=== PATIENT | female | born 1995 | race African-American/Black ===

== ENCOUNTER 2021-12-24 14:14 | Inpatient (IN) ==
[2021-12-24] MEDS ORDERED: LACTATED RINGERS 1,000 ML IV ONE (14:31)
[2021-12-24 14:41] LABS: Basophils % 0.2 % (0.0-0.8); Eosinophils # 0.2 10*3/uL (0.0-0.87); Eosinophils % 1.4 % (0.00-10.9); Hematocrit 31.8 VOL% (35.7-47.0); Hemoglobin 10.6 GM/DL (12.0-16.0); Immature Granulocytes % 0.8 %; Immature Granulocytes Absolute 0.09 #; Lymphocytes # 2.1 10*3/uL (1.4-4.0); Lymphocytes % 17.8 % (21.3-54.2); Mean Corpuscular HGB Conc 33.3 GM/DL (32-36); Monocytes # 1.2 10*3/uL (0.11-0.8); Monocytes % 10.1 % (1.7-12.7); Neutrophils % 69.7 % (38.7-73.9); Platelet Count 133 T/CUMM (130-400); Red Blood Count 3.28 MC/CUMM (3.8-5.5); Red Cell Distribution Width 14.3 % (9.3-17.3); White Blood Count 11.6 T/CUMM (4-12)
[2021-12-24 14:50] LABS: INR 0.9; PT Patient Result 10.5 SECS (10.1-12.1); Partial Thromboplastin Time 26.5 SECS (23.7-32.9)
[2021-12-24 15:15] LABS: Alanine Aminotransferase 22 U/L (13-56); Albumin 2.7 G/DL (3.4-5.0); Alkaline Phosphatase 139 U/L (45-117); Aspartate Amino Transferase 29 U/L (0-37); Bilirubin,Total < 0.39 MG/DL (0.20-1.00); Blood Urea Nitrogen 10 MG/DL (7-18); Calcium 8.2 MG/DL (8.5-10.1); Carbon Dioxide 22 MMOL/L (21-32); Chloride 109 MMOL/L (98-107); Glucose 144 MG/DL (74-106); Osmolality,Calculated 280.4 MOS/KG (273-304); Potassium 3.6 MMOL/L (3.5-5.1); Sodium 140 MMOL/L (136-145); Total Protein 5.8 G/DL (6.4-8.2)
[2021-12-24 16:03] LABS: Bacteria,Urine Occasional /HPF (Few); Bilirubin,Urine Negative (Negative); Blood, Urine Moderate mg/dL (Negative); Glucose,Urine (UA) 50 mg/dL (Negative); Hyaline Casts,Urine 7 /LPF (0-3); Ketones,Urine Negative (Negative); Mucus,Urine Occasional /LPF (Occasional); Nitrite,Urine Negative (Negative); Protein,Urine 100 mg/dL (Negative); RBC,Urine 86 /HPF (0-4); Squamous Epithelial Cell,Urine Occasional /HPF (0-10); Urine Appearance Slightly Hazy (Clear); Urine Color Yellow (Yellow); Urine Specific Gravity 1.028 (1.001-1.035); Urine Urobilinogen < 2.0 eU/dL (<2.0)
[2021-12-24] MEDS ORDERED: METOCLOPRAMIDE 10 MG/2 ML VIAL ONE (16:15)
[2021-12-24] MEDS ORDERED: FAMOTIDINE 20 MG/2 ML VIAL IV ONE (16:15)
[2021-12-24 16:29] LABS: Barbiturates Screen,Urine Negative (Negative); Benzodiazepines Screen,Urine Negative (Negative); Cannabinoid Screen,Urine Negative (Negative); Opiate Screen,Urine Negative (Negative); Phencyclidine Screen,Urine Negative (Negative)
[2021-12-24] MEDS ORDERED: ceFAZolin 2,000 MG/50 ML DUPLEX IV ONE (16:34)
[2021-12-24] MEDS ORDERED: ONDANSETRON 4 MG/2 ML VIAL IV PRN (16:36)
[2021-12-24] MEDS ORDERED: MORPHINE 2 MG/1 ML SYRINGE IV PRN (16:36)
[2021-12-24] MEDS ORDERED: fentaNYL 100 MCG/2 ML VIAL ONE ×2 (16:43→18:50)
[2021-12-24] MEDS ORDERED: SUCCINYLCHOLINE 200 MG/10 ML VIAL ONE (16:43)
[2021-12-24] MEDS ORDERED: propofoL 200 MG/20 ML VIAL IV ONE (16:43)
[2021-12-24] MEDS ORDERED: ROCURONIUM 50 MG/5 ML VIAL IV ONE ×2 (16:43→19:28)
[2021-12-24] MEDS ORDERED: DIPH/TET/ACEL PERT BOOSTER VACCINE 0.5 ML VIAL IM ONE (16:46)
[2021-12-24] MEDS ORDERED: GENTAMICIN 80 MG/2 ML VIAL ONE (16:51)
[2021-12-24] MEDS ORDERED: GENTAMICIN INJ 80 MG/50 ML PREMIX IV SCH (17:00)
[2021-12-24] MEDS ORDERED: PHENYLEPHRINE 1 MG/10 ML SYRINGE IV ONE (17:20)
[2021-12-24] MEDS ORDERED: PHENYLEPHRINE 10 MG/1 ML VIAL IV ONE (17:20)
[2021-12-24] MEDS ORDERED: ePHEDrine 50 MG/ML VIAL ONE (17:32)
[2021-12-24] MEDS ORDERED: ALBUMIN 5% 12.5 GM/250 ML VIAL IV ONE ×2 (17:32→18:41)
[2021-12-24 18:13] LABS: Basophils % 0.2 % (0.0-0.8); Eosinophils % 0.2 % (0.00-10.9); Hematocrit 27.3 VOL% (35.7-47.0); Immature Granulocytes % 0.6 %; Immature Granulocytes Absolute 0.08 #; Lymphocytes # 1.3 10*3/uL (1.4-4.0); Lymphocytes % 9.9 % (21.3-54.2); Mean Corpuscular Volume 98.6 FL (87-102); Mean Platelet Volume 11.9 FL (9.6-12.0); Monocytes # 1.3 10*3/uL (0.11-0.8); Monocytes % 9.8 % (1.7-12.7); Neutrophils % 79.3 % (38.7-73.9); Platelet Count 127 T/CUMM (130-400); Red Blood Count 2.77 MC/CUMM (3.8-5.5); Red Cell Distribution Width 14.3 % (9.3-17.3); White Blood Count 13.1 T/CUMM (4-12)
[2021-12-24 18:27] LABS: ABG Base Excess -5.3 MMOL/L (-2.5-2.5); ABG Oxygen Saturation 95.5 % (95-100); ABG PCO2 40.5 MM HG (35-48); ABG PH 7.313 (7.35-7.45); ABG PO2 85.7 MM HG (80-95); ABG TCO2 19.2 MMOL/L (23-27)
[2021-12-24] MEDS ORDERED: HEPARIN/NACL 0.9% 2 UNITS/ML 1,000 UNIT/500 ML BAG IV ONE (18:27)
[2021-12-24] MEDS ORDERED: ALBUMIN 25% 25 GM/100 ML VIAL IV ONE (18:41)
[2021-12-24] MEDS ORDERED: SODIUM CHLORIDE 0.9% 1,000 ML IV PRN (18:47)
[2021-12-24 19:08] LABS: Calcium 8.7 MG/DL (8.5-10.1); Osmolality,Calculated 279.3 MOS/KG (273-304); Potassium 4.4 MMOL/L (3.5-5.1)
[2021-12-24] MEDS ORDERED: LACTATED RINGERS 2,000 ML IV ONE (19:28)
[2021-12-24] MEDS ORDERED: SODIUM CHLORIDE 0.9% 1,000 ML IV ONE (19:28)
[2021-12-24] MEDS ORDERED: ONDANSETRON 4 MG/2 ML VIAL ONE (19:28)
[2021-12-24] MEDS ORDERED: ALBUTEROL INHALER 18 GM INH ONE (19:28)
[2021-12-24] MEDS ORDERED: SODIUM CHLORIDE 0.9% 250 ML IV ONE (19:37)
[2021-12-24 19:39] LABS: Microcytosis Slight; Platelet Estimate Decreased
[2021-12-24] MEDS ORDERED: NEOMYCIN/POLYMYXIN/BACITRACIN OINT 28.4 GM TUBE TOP ONE (19:39)
[2021-12-24 19:43] LABS: Polychromasia Slight
[2021-12-24 19:45] LABS: Anisocytosis Slight
[2021-12-24] MEDS ORDERED: HYDROmorphone 1 MG/1 ML SYRINGE ONE (19:45)
[2021-12-24] MEDS ORDERED: GLYCOPYRROLATE 0.4 MG/2 ML VIAL ONE (19:47)
[2021-12-24] MEDS ORDERED: NEOSTIGMINE 10 MG/10 ML VIAL ONE (19:47)
[2021-12-24 20:26] LABS: Arterial Bicarbonate iSTAT 19.5 MMOL/L (20-26); Arterial pH iSTAT 7.331 (7.35-7.45)
[2021-12-24] MEDS: MORPHINE 2 MG/1 ML SYRINGE IV PRN (21:49)
[2021-12-24] MEDS: BETAMETH SODIUM PHOS/ACETATE 30 MG/5 ML VIAL IM SCH (23:04)
[2021-12-25] MEDS: ceFAZolin 2,000 MG/50 ML DUPLEX IV SCH ×4 (00:34→17:24)
[2021-12-25] MEDS: MORPHINE 2 MG/1 ML SYRINGE IV PRN ×2 (01:34→20:41)
[2021-12-25 06:04] LABS: Basophils % 0.1 % (0.0-0.8); Hematocrit 30.2 VOL% (35.7-47.0); Immature Granulocytes % 0.8 %; Immature Granulocytes Absolute 0.12 #; Lymphocytes % 6.5 % (21.3-54.2); Mean Corpuscular HGB Conc 33.1 GM/DL (32-36); Mean Corpuscular Volume 94.7 FL (87-102); Mean Platelet Volume 11.5 FL (9.6-12.0); Monocytes # 1.1 10*3/uL (0.11-0.8); Monocytes % 7.3 % (1.7-12.7); Neutrophils % 85.3 % (38.7-73.9); Platelet Count 105 T/CUMM (130-400); Red Blood Count 3.19 MC/CUMM (3.8-5.5); White Blood Count 14.6 T/CUMM (4-12)
[2021-12-25 06:29] LABS: Calcium 8.6 MG/DL (8.5-10.1); Osmolality,Calculated 279.3 MOS/KG (273-304); Potassium 3.8 MMOL/L (3.5-5.1)
[2021-12-25] MEDS: oxyCODONE/ACETAMINOPHEN 5-325 MG TABLET PO PRN ×2 (07:07→15:33)
[2021-12-25] MEDS: GENTAMICIN INJ 80 MG/50 ML PREMIX IV SCH ×2 (11:11→18:56)
[2021-12-25] MEDS: BETAMETH SODIUM PHOS/ACETATE 30 MG/5 ML VIAL IM SCH (11:15)
[2021-12-25] MEDS: PANTOPRAZOLE 40 MG TABLET PO SCH (11:22)
[2021-12-25] MEDS: METOCLOPRAMIDE 10 MG/2 ML VIAL IV SCH (20:30)
[2021-12-25] MEDS: SIMETHICONE CHEW 125 MG TABLET PO PRN (20:30)
[2021-12-26] MEDS: ceFAZolin 2,000 MG/50 ML DUPLEX IV SCH ×3 (01:07→16:43)
[2021-12-26] MEDS: DEXTROSE 5% LACTATED RINGERS 1,000 ML IV SCH (01:08)
[2021-12-26] MEDS: SIMETHICONE CHEW 125 MG TABLET PO PRN (01:14)
[2021-12-26] MEDS: GENTAMICIN INJ 120 MG/100 ML PREMIX IV SCH ×3 (03:08→19:12)
[2021-12-26] MEDS: ACETAMINOPHEN 325 MG TABLET PO PRN ×2 (04:13→12:37)
[2021-12-26 04:31] LABS: Basophils % 0.2 % (0.0-0.8); Hematocrit 28.3 VOL% (35.7-47.0); Hemoglobin 9.5 GM/DL (12.0-16.0); Immature Granulocytes % 1.1 %; Lymphocytes # 1.3 10*3/uL (1.4-4.0); Lymphocytes % 7.1 % (21.3-54.2); Mean Corpuscular HGB Conc 33.6 GM/DL (32-36); Mean Platelet Volume 12.2 FL (9.6-12.0); Monocytes # 1.9 10*3/uL (0.11-0.8); Monocytes % 10.3 % (1.7-12.7); Neutrophils % 81.3 % (38.7-73.9); Platelet Count 110 T/CUMM (130-400); Red Blood Count 2.98 MC/CUMM (3.8-5.5); Red Cell Distribution Width 15.3 % (9.3-17.3); White Blood Count 18.7 T/CUMM (4-12)
[2021-12-26 05:13] LABS: Calcium 8.8 MG/DL (8.5-10.1); Osmolality,Calculated 281.1 MOS/KG (273-304); Potassium 3.4 MMOL/L (3.5-5.1)
[2021-12-26] MEDS ORDERED: fentaNYL 100 MCG/2 ML VIAL ONE (06:36)
[2021-12-26] MEDS ORDERED: SUCCINYLCHOLINE 200 MG/10 ML VIAL ONE (06:36)
[2021-12-26] MEDS ORDERED: propofoL 200 MG/20 ML VIAL IV ONE (06:36)
[2021-12-26] MEDS: METOCLOPRAMIDE 10 MG/2 ML VIAL IV SCH ×3 (08:12→18:11)
[2021-12-26] MEDS: DOCUSATE SODIUM 100 MG CAPSULE PO SCH (08:29)
[2021-12-26] MEDS: PANTOPRAZOLE 40 MG TABLET PO SCH (08:29)
[2021-12-26] MEDS ORDERED: ceFAZolin 1,000 MG VIAL ONE (09:15)
[2021-12-26] MEDS ORDERED: SEVOFLURANE 1 UNIT/15 MINUTE INH ONE (09:21)
[2021-12-26] MEDS ORDERED: LACTATED RINGERS 1,000 ML IV ONE (09:43)
[2021-12-26] MEDS: oxyCODONE/ACETAMINOPHEN 5-325 MG TABLET PO PRN ×2 (16:44→23:46)
[2021-12-26] MEDS ORDERED: FLUCONAZOLE 200 MG TABLET PO ONE (17:00)
[2021-12-27] MEDS: DOCUSATE SODIUM 100 MG CAPSULE PO SCH ×3 (01:18→21:07)
[2021-12-27] MEDS: ceFAZolin 2,000 MG/50 ML DUPLEX IV SCH ×3 (01:19→16:58)
[2021-12-27] MEDS: METOCLOPRAMIDE 10 MG/2 ML VIAL IV SCH ×2 (02:46→06:53)
[2021-12-27 02:54] LABS: Basophils % 0.1 % (0.0-0.8); Eosinophils % 0.1 % (0.00-10.9); Hematocrit 27.1 VOL% (35.7-47.0); Immature Granulocytes % 0.9 %; Immature Granulocytes Absolute 0.13 #; Lymphocytes # 1.6 10*3/uL (1.4-4.0); Lymphocytes % 11.4 % (21.3-54.2); Mean Corpuscular HGB Conc 33.2 GM/DL (32-36); Mean Corpuscular Volume 96.1 FL (87-102); Mean Platelet Volume 11.6 FL (9.6-12.0); Monocytes # 1.7 10*3/uL (0.11-0.8); Monocytes % 11.6 % (1.7-12.7); NRBC # 0.02 10*3/uL; Neutrophils % 75.9 % (38.7-73.9); Platelet Count 111 T/CUMM (130-400); Red Blood Count 2.82 MC/CUMM (3.8-5.5); Red Cell Distribution Width 15.1 % (9.3-17.3); White Blood Count 14.3 T/CUMM (4-12)
[2021-12-27] MEDS: GENTAMICIN INJ 120 MG/100 ML PREMIX IV SCH ×3 (03:15→19:08)
[2021-12-27] MEDS: oxyCODONE/ACETAMINOPHEN 5-325 MG TABLET PO PRN ×3 (06:18→22:13)
[2021-12-27] MEDS: MULTIVITAMIN (PRENATAL) TABLET PO SCH ×2 (06:53→21:07)
[2021-12-27] MEDS ORDERED: METOCLOPRAMIDE 10 MG/2 ML VIAL IV PRN (07:36)
[2021-12-27] MEDS: PANTOPRAZOLE 40 MG TABLET PO SCH (09:30)
[2021-12-27] MEDS: DEXTROSE 5% LACTATED RINGERS 1,000 ML IV SCH (11:50)
[2021-12-28] MEDS: ceFAZolin 2,000 MG/50 ML DUPLEX IV SCH ×3 (01:07→17:06)
[2021-12-28] MEDS: GENTAMICIN INJ 120 MG/100 ML PREMIX IV SCH ×3 (04:33→19:27)
[2021-12-28] MEDS: DOCUSATE SODIUM 100 MG CAPSULE PO SCH ×2 (08:33→21:19)
[2021-12-28] MEDS: PANTOPRAZOLE 40 MG TABLET PO SCH (08:33)
[2021-12-28] MEDS: oxyCODONE/ACETAMINOPHEN 5-325 MG TABLET PO PRN ×2 (08:36→17:05)
[2021-12-28] MEDS: POLYETHYLENE GLYCOL POWDER 17 GM PACK PO PRN (14:15)
[2021-12-28] MEDS ORDERED: FLUCONAZOLE 200 MG TABLET PO ONE (17:00)
[2021-12-28] MEDS: NYSTATIN 500,000 UNIT/5 ML UDCUP SWISH/SWAL SCH ×2 (17:05→21:19)
[2021-12-28] MEDS: MULTIVITAMIN (PRENATAL) TABLET PO SCH (21:19)
[2021-12-29] MEDS: ceFAZolin 2,000 MG/50 ML DUPLEX IV SCH ×3 (01:07→17:47)
[2021-12-29] MEDS: oxyCODONE/ACETAMINOPHEN 5-325 MG TABLET PO PRN ×3 (02:52→17:48)
[2021-12-29] MEDS: GENTAMICIN INJ 120 MG/100 ML PREMIX IV SCH ×2 (02:53→12:29)
[2021-12-29] MEDS: PANTOPRAZOLE 40 MG TABLET PO SCH (08:45)
[2021-12-29] MEDS: NYSTATIN 500,000 UNIT/5 ML UDCUP SWISH/SWAL SCH ×4 (08:45→21:06)
[2021-12-29] MEDS: POLYETHYLENE GLYCOL POWDER 17 GM PACK PO PRN (08:46)
[2021-12-29] MEDS: DOCUSATE SODIUM 100 MG CAPSULE PO SCH ×2 (08:46→21:07)
[2021-12-29] MEDS: NIFEdipine 10 MG CAPSULE PO SCH ×4 (10:10→22:04)
[2021-12-29] MEDS: LACTATED RINGERS 1,000 ML IV SCH ×2 (10:11→20:19)
[2021-12-29] MEDS: MULTIVITAMIN (PRENATAL) TABLET PO SCH (21:06)
[2021-12-30] MEDS: oxyCODONE/ACETAMINOPHEN 5-325 MG TABLET PO PRN ×2 (00:18→06:16)
[2021-12-30] MEDS: NIFEdipine 10 MG CAPSULE PO SCH ×3 (01:54→09:54)
[2021-12-30] MEDS: LACTATED RINGERS 1,000 ML IV SCH (03:34)
[2021-12-30 07:16] VITALS: BP 104/63
[2021-12-30] MEDS ORDERED: NEOMYCIN/POLYMYXIN/BACITRACIN OINT 0.9 GM PACK TOP SCH (09:00)
[2021-12-30] MEDS: PANTOPRAZOLE 40 MG TABLET PO SCH (09:54)
[2021-12-30] MEDS: DOCUSATE SODIUM 100 MG CAPSULE PO SCH (09:54)
[2021-12-30] MEDS: NYSTATIN 500,000 UNIT/5 ML UDCUP SWISH/SWAL SCH (09:54)
== END 2021-12-30 12:25 | disposition home or self-care (01) | DRG 817 ==
LOC: N.ED 14:14 → N.LD 16:36 → N.OB 12-26 20:33
PROVIDERS: ADMIT Surgery; ATTEND Surgery

== ENCOUNTER 2022-02-05 02:20 | Inpatient (IN) ==
[2022-02-05] MEDS ORDERED: TRANEXAMIC ACID 1,000 MG in SODIUM CHLORIDE 0.9% 100 ML IV PRN (02:29)
[2022-02-05] MEDS ORDERED: ONDANSETRON 4 MG/2 ML VIAL IV PRN ×2 (02:29→10:07)
[2022-02-05] MEDS ORDERED: CARBOPROST TROMETHAMINE 250 MCG/ML AMP IM PRN (02:29)
[2022-02-05] MEDS ORDERED: METHYLERGONOVINE 0.2 MG/1 ML AMP IM PRN (02:29)
[2022-02-05] MEDS ORDERED: miSOPROStoL 200 MCG TABLET RECTAL PRN (02:29)
[2022-02-05] MEDS ORDERED: LACTATED RINGERS 1,000 ML IV SCH (02:30)
[2022-02-05] MEDS ORDERED: BUTORPHANOL 1 MG/ML VIAL IV PRN (02:34)
[2022-02-05] MEDS ORDERED: OXYTOCIN/LR 20 UNIT/1,000 ML BAG IV ONE ×2 (02:36→10:07)
[2022-02-05] MEDS: OXYTOCIN/LR 20 UNIT/1,000 ML BAG IV PRN ×2 (02:38→03:48)
[2022-02-05 03:02] LABS: Basophils % 0.1 % (0.0-0.8); Hematocrit 39.3 VOL% (35.7-47.0); Immature Granulocytes % 0.7 %; Immature Granulocytes Absolute 0.11 #; Lymphocytes # 1.1 10*3/uL (1.4-4.0); Lymphocytes % 6.8 % (21.3-54.2); Mean Corpuscular HGB Conc 33.1 GM/DL (32-36); Mean Corpuscular Volume 97.3 FL (87-102); Mean Platelet Volume 11.5 FL (9.6-12.0); Monocytes # 0.6 10*3/uL (0.11-0.8); Monocytes % 3.9 % (1.7-12.7); Neutrophils % 88.5 % (38.7-73.9); Platelet Count 116 T/CUMM (130-400); Red Blood Count 4.04 MC/CUMM (3.8-5.5); Red Cell Distribution Width 15.4 % (9.3-17.3); White Blood Count 16.2 T/CUMM (4-12)
[2022-02-05 03:15] LABS: Cord Venous Blood HCO3 22.6 MMOL/L; Cord Venous Blood PCO2 41.6 MMHG; Cord Venous Blood PO2 34.5
[2022-02-05 03:18] LABS: Albumin 3.1 G/DL (3.4-5.0); Bilirubin,Total 0.4 MG/DL (0.20-1.00); Calcium 9.1 MG/DL (8.5-10.1); Potassium 3.7 MMOL/L (3.5-5.1); Total Protein 7.1 G/DL (6.4-8.2)
[2022-02-05 03:32] LABS: Lymphocytes 8 % (20-55); Myelocytes 1 %; Platelet Estimate Decreased; Total Cells Counted 100
[2022-02-05] MEDS ORDERED: RHO(D) IMMUNE GLOBULIN 300 MCG SYRINGE IM ONE (10:07)
[2022-02-05] MEDS ORDERED: HYDROCORTISONE 2.5% RECTAL CREAM 30 GM TUBE TOP PRN (10:07)
[2022-02-05] MEDS ORDERED: IBUPROFEN 800 MG TABLET PO PRN (10:07)
[2022-02-05] MEDS ORDERED: MEASLES/MUMPS/RUBELLA VACCINE 0.5 ML VIAL SUBCUT ONE (10:07)
[2022-02-05] MEDS ORDERED: oxyCODONE/ACETAMINOPHEN 5-325 MG TABLET PO PRN ×2 (10:07)
[2022-02-05] MEDS ORDERED: WITCH HAZEL PADS 100/JAR TOP PRN (10:07)
[2022-02-05] MEDS ORDERED: DIPH/TET/ACEL PERT BOOSTER VACCINE 0.5 ML VIAL IM ONE (10:07)
[2022-02-05] MEDS ORDERED: ACETAMINOPHEN 325 MG TABLET PO PRN (10:07)
[2022-02-05] MEDS ORDERED: BISACODYL 10 MG SUPP RECTAL PRN (10:07)
[2022-02-05] MEDS ORDERED: BENZOCAINE 20%/MENTHOL 0.5% SPRAY 56 GM CAN TOP PRN (10:07)
[2022-02-05] MEDS ORDERED: DOCUSATE SODIUM 100 MG CAPSULE PO SCH (10:07)
[2022-02-05] MEDS ORDERED: LANOLIN 50% CREAM 0.3 OZ TUBE TOP PRN (10:07)
[2022-02-06 06:43] LABS: Basophils % 0.2 % (0.0-0.8); Eosinophils # 0.1 10*3/uL (0.0-0.87); Eosinophils % 0.8 % (0.00-10.9); Hematocrit 40.1 VOL% (35.7-47.0); Hemoglobin 12.9 GM/DL (12.0-16.0); Immature Granulocytes % 0.4 %; Immature Granulocytes Absolute 0.06 #; Lymphocytes # 3.1 10*3/uL (1.4-4.0); Lymphocytes % 22.6 % (21.3-54.2); Mean Corpuscular HGB Conc 32.2 GM/DL (32-36); Mean Corpuscular Volume 98.3 FL (87-102); Monocytes # 1.1 10*3/uL (0.11-0.8); Monocytes % 8.1 % (1.7-12.7); Neutrophils % 67.9 % (38.7-73.9); Platelet Count 107 T/CUMM (130-400); Red Blood Count 4.08 MC/CUMM (3.8-5.5); Red Cell Distribution Width 15.7 % (9.3-17.3); White Blood Count 13.6 T/CUMM (4-12)
[2022-02-06 12:31] VITALS: BP 101/61
== END 2022-02-06 15:00 | disposition home or self-care (01) | DRG 807 ==
LOC: N.LDOUT 02:20 → N.LD 02:22 → N.OB 09:45
PROVIDERS: ADMIT Specialist; ATTEND Specialist